=== PATIENT | female | born 1960 | race Two or more races ===

== ENCOUNTER 2023-12-28 06:58 | Emergency (ER) | payer MEDICAID, OTHER ==
[~2023-12-28] VITALS: Ht 152.4 cm; Wt 77.3 kg
[~2023-12-28 06:58] MED LIST: DOCU-412 PO; RISP0.252 PO
[2023-12-28 07:07] VITALS: BP 164/103; PULSE 98; RESP 18; TEMP 98
[2023-12-28] MEDS ORDERED: SERT-439 PO (07:09)
[2023-12-28] MEDS ORDERED: BENZ-247 PO (07:09)
[2023-12-28] MEDS ORDERED: ARIP15TA27 PO (07:09)
[2023-12-28] MEDS: KETOROLAC TROMETHAMINE 60 MG/2 ML VIAL IM ONE (08:02)
[2023-12-28] MEDS: METHOCARBAMOL 500 MG TABLET PO ONE (08:02)
[2023-12-28] MEDS: LIDOCAINE 5% TRANSDERMAL PATCH TD ONE (08:03)
[2023-12-28] MEDS ORDERED: IBUP-1492 PO (08:55)
[2023-12-28] MEDS ORDERED: METH-659 PO (08:55)
== END 2023-12-28 09:17 | disposition home or self-care (01) ==
LOC: EMS 06:59
DX: S29.012A Strain of muscle and tendon of back wall of thorax, initial encounter (principal); G56.82 Other specified mononeuropathies of left upper limb; X58.XXXA Exposure to other specified factors, initial encounter; Y93.89 Activity, other specified; Y92.89 Other specified places as the place of occurrence of the external cause; Y99.8 Other external cause status
CPT/HCPCS: 99283; 96372; J1885

== ENCOUNTER 2023-12-31 15:08 | Emergency (ER) | payer OTHER ==
[~2023-12-31] VITALS: Ht 160 cm; Wt 72.7 kg
[~2023-12-31 15:08] MED LIST changes: +ARIP15TA27 PO; +BENZ-247 PO; -DOCU-412 PO; +IBUP-1492 PO; +METH-659 PO; -RISP0.252 PO; +SERT-439 PO
[2023-12-31 15:48] VITALS: TEMP 98.4
[2023-12-31 16:10] LABS: BASOPHILS % (AUTO) 0.6 % (0.0-2.0); EOSINOPHILS % (AUTO) 1.7 % (1.0-6.0); HEMATOCRIT 42.1 % (36-46); HEMOGLOBIN 14.5 g/dL (12.0-16.0); LYMPHOCYTES # (AUTO) 1.5 K/uL (1.0-4.8); LYMPHOCYTES % (AUTO) 18.4 % (22.0-44.0); MEAN CORPUSCULAR HGB CONC 34.4 G/dL (31.0-37.0); MEAN CORPUSCULAR VOLUME 96 fL (80-100); MONOCYTES # (AUTO) 0.4 K/uL (0.1-1.0); MONOCYTES % (AUTO) 4.9 % (2.0-9.0); NEUTROPHILS # (AUTO) 6.1 K/uL (1.8-7.7); NEUTROPHILS % (AUTO) 74.4 % (40.0-70.0); PLATELET COUNT (AUTO) 234 K/uL (150-450); RED BLOOD CELL COUNT(AUTO) 4.39 MIL/uL (4.00-5.20); RED CELL DISTRIBUTION WIDTH 12.9 % (11.5-14.5); WHITE BLOOD COUNT (AUTO) 8.2 K/uL (4.5-11.0)
[2023-12-31] MEDS: SODIUM CHLORIDE 0.9% 1,000 ML IV ONE (16:13)
[2023-12-31 17:06] LABS: CALCIUM, TOTAL 9.3 mg/dL (8.8-10.5); CREATININE 1.07 mg/dL (0.60-1.30); POTASSIUM 3.5 mmol/L (3.5-5.1)
[2023-12-31 17:12] LABS: ALBUMIN 3.8 g/dL (3.4-5.0); BILIRUBIN,TOTAL 0.6 mg/dL (0.1-1.0); TOTAL PROTEIN, SERUM 7.7 g/dL (6.4-8.2)
[2023-12-31 19:52] LABS: ALCOHOL, URINE DRUG SCREEN POSITIVE (NEGATIVE); AMPHET/METH SCREEN,URINE NEGATIVE (NEGATIVE); BARBITURATE SCREEN, URINE NEGATIVE (NEGATIVE); BENZODIAZEPINES SCREEN,URINE NEGATIVE (NEGATIVE); CANNABINOID SCREEN,URINE NEGATIVE (NEGATIVE); COCAINE SCREEN,URINE NEGATIVE (NEGATIVE); METHADONE SCREEN, URINE NEGATIVE (NEGATIVE); OPIATE SCREEN,URINE NEGATIVE (NEGATIVE); PHENCYCLIDINE SCREEN,URINE NEGATIVE (NEGATIVE)
[2023-12-31 20:29] VITALS: BP 131/96; PULSE 86; RESP 20
== END 2023-12-31 22:02 | disposition home or self-care (01) ==
LOC: EMS 15:08
DX: F10.129 Alcohol abuse with intoxication, unspecified (principal); Z98.890 Other specified postprocedural states; Y90.9 Presence of alcohol in blood, level not specified
CPT/HCPCS: 99283; 96360; 80053; 85025; 36415; 80307; G0480; J7030

== ENCOUNTER 2024-09-29 09:16 | Emergency (ER) | payer OTHER ==
[~2024-09-29] VITALS: Ht 152.4 cm; Wt 69.3 kg
[2024-09-29 09:30] VITALS: BP 127/72; PULSE 74; RESP 18; TEMP 98.3; O2SAT 98
[2024-09-29] MEDS ORDERED: ACET-3385 PO (09:33)
[2024-09-29] MEDS: KETOROLAC TROMETHAMINE 30 MG/ML VIAL IM ONE (09:41)
== END 2024-09-29 10:07 | disposition home or self-care (01) ==
LOC: EMS 09:21
DX: M79.651 Pain in right thigh (principal); F20.9 Schizophrenia, unspecified; Z79.1 Long term (current) use of non-steroidal anti-inflammatories (NSAID); Z79.899 Other long term (current) drug therapy
CPT/HCPCS: 99283; 96372; J1885